=== PATIENT | female | born 1995 | race Caucasian/White ===

== ENCOUNTER 2018-05-08 03:53 | Inpatient (IN) | payer OTHER ==
[2018-05-08 04:25] LABS: APPEARANCE,URINE SLIGHTLY-CLOUDY; BILIRUBIN,URINE NEGATIVE (NEGATIVE); COLOR,URINE YELLOW; GLUCOSE, URINE NEGATIVE (NEGATIVE); KETONES,URINE NEGATIVE (NEGATIVE); LEUKOCYTE ESTERASE,URINE NEGATIVE (NEGATIVE); NITRITE,URINE NEGATIVE (NEGATIVE); PROTEIN,URINE NEGATIVE (NEGATIVE); UROBILINOGEN,URINE NEGATIVE mg/dL (<2.0)
[2018-05-08 04:42] LABS: URINE AMPHETAMINES SCREEN NEGATIVE; URINE BARBITURATES SCREEN NEGATIVE; URINE BENZODIAZEPINES SCREEN NEGATIVE; URINE COCAINE SCREEN NEGATIVE; URINE MARIJUANA (THC) SCREEN NEGATIVE; URINE METHADONE SCREEN NEGATIVE; URINE PHENCYCLIDINE SCREEN NEGATIVE
[2018-05-08] MEDS ORDERED: RINGERS SOLUTION,LACTATED 1,000 ML IV PRN (04:48)
[2018-05-08] MEDS ORDERED: OXYTOCIN 10 UNIT/ML VIAL ONE (05:16)
[2018-05-08] MEDS ORDERED: MISOPROSTOL 0.2 MG TABLET ONE (05:16)
[2018-05-08] MEDS ORDERED: LIDOCAINE 1% INJ-PF (10 MG/ML) 30 ML SDV ONE (05:16)
[2018-05-08] MEDS ORDERED: OXYTOCIN/NORMAL SALINE 20 UNIT/1,000 ML RTUINJ ONE (05:16)
[2018-05-08] MEDS ORDERED: RINGERS SOLUTION,LACTATED 1,000 ML IV ONE (05:30)
[2018-05-08 05:56] LABS: ABSOLUTE BASOPHILS # (AUTO) 0.1 10^3/uL (0.0-0.2); ABSOLUTE EOSINOPHILS # (AUTO) 0.5 10^3/uL (0.0-0.6); ABSOLUTE LYMPHOCYTES (AUTO) 2.4 10^3/uL (0.5-4.7); ABSOLUTE MONOCYTES (AUTO) 0.7 10^3/uL (0.1-1.4); ABSOLUTE NEUT (AUTO) 8.3 10^3/uL (1.7-8.2); BASOPHILS % (AUTO) 0.8 % (0-2); HEMATOCRIT 27.8 % (36.0-47.0); HEMOGLOBIN 9.3 g/dL (12.0-15.5); LYMPHOCYTES % (AUTO) 20.4 % (13-45); MEAN CORPUSCULAR HEMOGLOBIN 25.1 pg (27.0-33.4); MEAN CORPUSCULAR HGB CONC 33.3 g/dL (32.0-36.0); MEAN CORPUSCULAR VOLUME 75 fl (80-97); MONOCYTES % (AUTO) 5.7 % (3-13); PLATELET COUNT 315 10^3/uL (150-450); RED BLOOD COUNT 3.69 10^6/uL (3.72-5.28); RED CELL DISTRIBUTION WIDTH 15.1 % (11.5-14.0); SEGMENTED NEUTROPHILS % (AUTO) 69.1 % (42-78); TOTAL CELLS COUNTED % (AUTO) 100 %; WHITE BLOOD COUNT 11.9 10^3/uL (4.0-10.5)
[2018-05-08] MEDS ORDERED: EPHEDRINE SULFATE INJ 50 MG/1 ML AMPULE ONE (06:34)
[2018-05-08] MEDS ORDERED: BUPIVACAINE HCL 0.25 % INJ/PF (2.5 MG/1 ML) 30 ML VIAL ONE (06:35)
[2018-05-08] MEDS ORDERED: FENTANYL/BUPIVACAINE/NS/PF 0 MCG/0 ML RTUINJ EPI ONE (06:35)
--- NOTE | 2018-05-08 07:08 | Admission Physical ---
Datetime Report Generated by CPN: 05/08/2018 07:08 CURRENT ADMISSION Chief Complaint: Uterine Contractions; Suspected Ruptured Membranes Indication for Induction: Not Applicable Admit Impression : Term, Intrauterine ; Ruptured Membranes Admit Plan: Admit to Unit; Initiate Labor Augmentation Protocol ALLERGIES Medication Allergies: No Medication Allergies: No Known Allergies (05/08/2018) Latex: Unknown Food Allergies: NKA Environmental Allergies: NKA OBSTETRICAL HISTORY EDC: 05/05/2018 00:00 : 1 Para: 0 Term: 0 : 0 SAB: 0 IAB: 0 Ectopic: 0 Livin Cesareans: 0 VBACs: 0 Multiple Births: 0 Gestational Diabetes: No Rh Sensitization: No Incompetent Cervix: No DACIA: No Infertility: No ART Treatment: No Uterine Anomaly: No IUGR: No Hx Previous C/S: No Macrosomia: No Hx Loss/Stillborn: No PIH: No Hx : No Placenta Previa/Abruption: No Depression/PP Depression: No PTL/PROM: No Post Hemorrhage: No Current Procedures: Ultrasound; NST Obstetrical History Comments: G1- current SEE RECORDS Alcohol: No Marijuana : No Cocaine: No Other Illicit Drugs: No Cigarettes: Never Smoker. 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: No Heart Disease: No Hosp/Surgery: No Autoimmune Disorder: No Anesthetic Complications: No Kidney Disease: No Abnormal Pap Smear: No Neuro/Epilepsy: No Psychiatric Disorders: No Other Medical Diseases: No Hepatitis/Liver Disease: No Significant Family History: No Varicosities/Phlebitis: No Trauma/Violence : No Thyroid Dysfunction: No INFECTIOUS HISTORY Gonorrhea: No Genital Herpes: No Chlamydia: Yes Tuberculosis: No Syphilis: No Hepatitis: No HIV/AIDS Exposure: No Rash or Viral Illness: No HPV: No Infectious History Comments: Chlamydia - 2017 PHYSICAL EXAM General: Normal HEENT: Normal Neurologic: Normal Thyroid: Normal Heart: Normal Lungs: Normal Breast: Normal Back: Normal Abdomen: Normal Genitourinary Exam: Normal Extremities: Normal DTRs: Normal Pelvic Type: Adequate Vital Signs: Reviewed VAGINAL EXAM Dilatation: 4 Effacement: 90 Station: -2 MEMBRANES Pooling: Positive Membranes: Ruptured Amniotic Fluid Color: Clear FETUS A EGA: 40.3 Monitoring: External US FHR- Baseline: 120 Variability: Moderate 6-25bpm Accelerations: 15X15 Decelerations: None FHR Category: Category I Estimated Weight (gm): 3800 Presentation: Vertex PLANS FOR LABOR AND DELIVERY Pain Management: Medications; Epidural Feeding Preference: Breast Benefit of Breast Feed Discussed: Yes Circumcision: Yes INFORMED CONSENT Signature: with User ID: [email or web address]
[2018-05-08] MEDS ORDERED: LIDOCAINE 1.5%/EPINEPHRINE INJ-PF 30 ML SDV ONE (07:18)
[2018-05-08] MEDS ORDERED: LIDOCAINE 2% JELLY 5 ML TUBE ONE ×2 (08:34→08:36)
[2018-05-08] MEDS ORDERED: MORPHINE SULFATE 10 MG/ML INJ ONE (09:05)
[2018-05-08] MEDS ORDERED: MORPHINE SULFATE 10 MG/ML INJ IV ONE (09:05)
[2018-05-08] MEDS ORDERED: DIPHENHYDRAMINE HCL 25 MG CAPSULE PO PRN (09:45)
[2018-05-08] MEDS ORDERED: ACETAMINOPHEN WITH CODEINE #3 TABLET PO PRN ×2 (09:45)
[2018-05-08] MEDS ORDERED: OXYTOCIN/NORMAL SALINE 20 UNIT/1,000 ML RTUINJ IV PRN (09:45)
[2018-05-08] MEDS ORDERED: PROMETHAZINE HCL 25 MG SUPP.RECT PR PRN (09:45)
[2018-05-08] MEDS ORDERED: DIPH/PERTUSS(ACELL)/TETANUS VAC/PF 0.5 ML SYR (>=10YO) IM PRN (09:45)
[2018-05-08] MEDS ORDERED: BENZOCAINE/MENTHOL AEROSOL SPRAY 56 ML TOP PRN (09:45)
[2018-05-08] MEDS ORDERED: PROMETHAZINE HCL INJ 25 MG/1 ML VIAL IV PRN (09:45)
[2018-05-08] MEDS ORDERED: NA PHOS,M-B/NA PHOS,DI-BA (ADULT) 133 ML ENEMA PR PRN (09:45)
[2018-05-08] MEDS ORDERED: PSEUDOEPHEDRINE HCL 30 MG TABLET PO PRN (09:45)
[2018-05-08] MEDS ORDERED: PROMETHAZINE HCL 25 MG TABLET PO PRN (09:45)
[2018-05-08] MEDS ORDERED: MAGNESIUM HYDROXIDE SUSP 30 ML UDCUP PO PRN (09:45)
[2018-05-08] MEDS ORDERED: ACETAMINOPHEN 325 MG TABLET PO PRN (09:45)
[2018-05-08] MEDS ORDERED: DIBUCAINE 1% OINTMENT 28 GM TP PRN (09:45)
[2018-05-08] MEDS ORDERED: MEASLES,MUMPS&RUBELLA VACC/PF 0.5 ML VIAL SUBCUT PRN (09:45)
[2018-05-08] MEDS ORDERED: GLYCERIN/WITCH HAZEL LEAF 1 EACH MED..PAD TP PRN (09:45)
--- NOTE | 2018-05-08 10:48 | Delivery Summary ---
Del Sum A-C Datetime Report Generated by CPN: 05/08/2018 10:48 DELIVERY PERSONNEL DELIVERY PERSONNEL: [id number] Delivery Doctor:: Sandhya Barrios CNM Nurse Ship Joiner Certified:: Sandhya Barrios CNM Labor and Delivery Nurse:: Luke Fonseca RNrobotic machine tender production Nurse:: LIZET Stacy Header Setup Operator/FIELD MECHANICAL METER TESTER: ST Yadira Header Setup Operator/FIELD MECHANICAL METER TESTER: Doris Prieto, OPERATOR MAINTAINER Additional Personnel: : Karime Miller RN MATERNAL INFORMATION Delivery Anesthesia: Local Medications During Delivery: lidocaine jelly for local anesthetic and 1% lidocaine for vaginal repair Medications After Delivery: Pitocin Bolus-Please Comment Meds After Delivery Comment: Pitocin 20 units in 1000ml nss open for bolus Maternal Complications: None Provider Comments: Arrived in unit and assumed care of this patient as she was pushing in room with RN. Pt. needed much guidance but pushed well and quickly delivered a viable baby boy in ZOFIA position with terminal meconium. Baby with strong respiratory effort and cry with tactile stimulation, placed on maternal abdomen and cord allowed to pulsating then clampsed x2 and cut by FOB (short cord, 3vc noted). Placenta quickly delivered spontaneously intact with moderate calcification, marginal cord insertion. Fundus firm, minimal bleeding. Vaginal and perineal inspection revealed laceration as stated and repaired in the usual manner. Bilateral labial abrasion noted and hemostatic. Mother and baby skin to skin, stable and bonding at this time. LABOR SUMMARY EDC: 05/05/2018 00:00 No. Babies in Womb: 1 Attempted: No Labor Anesthesia: None LABOR INFORMATION Reason for Induction: Not Applicable Onset of Labor: 05/08/2018 02:30 Complete Dilatation: 05/08/2018 07:38 Oxytocin: N/A Group B Beta Strep: Negative Antibiotics # of Doses: 0 Steroids Given: None Reason Steroids Not Administered: Not Applicable MEMBRANES Membranes Rupture Method: Spontaneous Rupture of Membranes: 05/08/2018 03:00 Length of Rupture (hr): 5.80 Amniotic Fluid Color: Clear Amniotic Fluid Amount: Moderate Amniotic Fluid Odor: None STAGES OF LABOR Stage 1 hr: 5 Stage 1 min: 8 Stage 2 hr: 1 Stage 2 min: 10 Stage 3 hr: 0 Stage 3 min: 6 Total Time in Labor hr: 6 Total Time in Labor min: 24 VAGINAL DELIVERY Episiotomy: None Laceration #1: Vaginal Laceration Extension #1: First Degree Other Laceration: 2.0 chromic Laceration Repair: Yes Laceration Repair Note: midline vaginal laceration repaired with 2-[address], hemostatis achieved Sponge Count Correct: Yes Sharps Count Correct: Yes CSECTION DELIVERY Primary Indication: N/A Secondary Indication: N/A CSection Incidence: N/A Labor: N/A Elective: N/A CSection Incision: N/A BABY A INFORMATION Infant Delivery Date/Time: 05/08/2018 08:48 Method of Delivery: Vaginal Born in Route : No : N/A Forceps: N/A Vacuum Extraction: N/A Shoulder Dystocia : No PRESENTATION/POSITION BABY A Presentation: Cephalic Cephalic Presentation: Vertex Vertex Position: Right Occipital Anterior Breech Presentation: N/A PLACENTA INFORMATION BABY A Placenta Delivery Time : 05/08/2018 08:54 Placenta Method of Delivery: Spontaneous Placenta Status: Delivered SCORES BABY A Heart Rate 1 min: >100 bpm Resp Effort 1 min: Good Cry Reflex Irritability 1 min: Cough or Sneeze or Pulls Away Muscle Tone 1 min: Active Motion Color 1 min: Body Ronald, Extremities Blue Resuscitation Effort 1 min: Tactile Stimulation SCORE 1 MIN: 9 Heart Rate 5 min: >100 bpm Resp Effort 5 min: Good Cry Reflex Irritability 5 min: Cough or Sneeze or Pulls Away Muscle Tone 5 min: Active Motion Color 5 min: Body Ronald, Extremities Blue Resuscitation Effort 5 min: N/A SCORE 5 MIN: 9 Resuscitation Effort 10 min: N/A INFANT INFORMATION BABY A Gestational Age at Delivery: 40.3 Gestational Status: Full Term- 39- 40.6 Weeks Infant Outcome : Liveborn Infant Condition : Stable Infant Sex: Male IDENTIFICATION BABY A Infant Verification Date/Time: 05/08/2018 09:06 ID Band Number: [id number] Mother's Name Verified: Yes RN Verifying Infant: S Camp [facility] Additional Verifying Personnel: Abril Fonseca RN WEIGHT/LENGTH BABY A Infant Birthweight (gm): 3065 Weight (lb): 6 Infant Weight (oz): 12 Length (in): 18.75 Length (cm): 47.63 CORD INFORMATION BABY A No. Cord Vessels: 3 Nuchal Cord : N/A Cord Blood Taken: Yes-For Eval (Mom's Blood Type - or O+) Infant Suction: Mouth ASSESSMENT BABY A Complications: Multiple Variable Decels; Meconium Infant Complications- Other: terminal meconium Physical Findings at Delivery: Caput Succedaneum Respirations: Appears Normal Skin to Skin: Yes Skin to Skin Time (min): 80 Hall Clerk/ALS Called : No Infant Care By: Abril Fonseca RN Transferred To: Remains with Mother BABY B INFORMATION : N/A SIGNATURES Assignment: Rina De Paz MD Signature: with User ID: [email or web address] : with User ID: [email or web address]
[2018-05-08] MEDS: IBUPROFEN 800 MG TABLET PO SCH ×3 (14:31→22:03)
[2018-05-08] MEDS: FERROUS SULFATE 325 MG TABLET PO SCH ×2 (16:03→17:50)
[2018-05-08] MEDS: DOCUSATE SODIUM 100 MG CAPSULE PO SCH ×2 (16:03→17:50)
[2018-05-08] MEDS: FAMOTIDINE 20 MG TABLET PO SCH ×2 (16:04→22:03)
[2018-05-08] MEDS: PRENATAL VITAMIN W DHA CAPSULE PO SCH (16:04)
[2018-05-08] MEDS: SENNOSIDES/DOCUSATE 8.6-50 MG 1 EACH TABLET PO SCH (16:04)
[2018-05-09] MEDS: IBUPROFEN 800 MG TABLET PO SCH ×3 (05:12→21:36)
[2018-05-09 07:55] LABS: HEMATOCRIT 24.2 % (36.0-47.0); MEAN CORPUSCULAR HEMOGLOBIN 24.9 pg (27.0-33.4); MEAN CORPUSCULAR HGB CONC 32.8 g/dL (32.0-36.0); MEAN CORPUSCULAR VOLUME 76 fl (80-97); PLATELET COUNT 249 10^3/uL (150-450); RED BLOOD COUNT 3.19 10^6/uL (3.72-5.28); RED CELL DISTRIBUTION WIDTH 15.4 % (11.5-14.0); WHITE BLOOD COUNT 10.7 10^3/uL (4.0-10.5)
[2018-05-09 08:24] LABS: HEMOGLOBIN 7.9 g/dL (12.0-15.5)
[2018-05-09] MEDS: FAMOTIDINE 20 MG TABLET PO SCH ×2 (09:25→21:36)
[2018-05-09] MEDS: DOCUSATE SODIUM 100 MG CAPSULE PO SCH ×2 (09:25→17:56)
[2018-05-09] MEDS: FERROUS SULFATE 325 MG TABLET PO SCH ×2 (09:25→17:56)
[2018-05-09] MEDS: PRENATAL VITAMIN W DHA CAPSULE PO SCH (09:25)
[2018-05-09] MEDS: SENNOSIDES/DOCUSATE 8.6-50 MG 1 EACH TABLET PO SCH (09:25)
--- NOTE | 2018-05-09 09:40 | PDOC PROGRESS REPORT ---
Subjective-OB Progress Note for:: 05/09/18 - PP Day #1, pt doing well, no complaints of being dizzy, CP, tachycardia. Hbg 7.9 pt is . O+, Rubella immune Physical Exam (OB) Vital Signs: Temp Pulse Resp BP Pulse Ox 98.2 F 84 15 135/70 H 100 05/09/18 07:26 05/09/18 07:26 05/09/18 07:26 05/09/18 07:26 05/09/18 07:26 Intake & Output 05/08/18 05/09/18 05/10/18 06:59 06:59 06:59 Intake Total 200 Balance 200 Weight 65.7 kg - General General Appearance: Appears well, Alert In distress: None - PIH/Pre-Eclampsia DTR's: 2 + Clonus: Negative Headache: Absent Epigastric Pain: No Visual Changes: No - Lochia Lochia Amount: Scant < 10 ml Lochia Color: Rubra/Red - Abdomen Description: Tender, Soft Hernia Present: No Fundal Description: Firm, Midline Fundal Height: u/u - u/2 - Respiratory Respiratory Status: No respiratory distress - Abdominal Distension: No distension - Genitourinary Genitourinary Note: voiding - Extremities Upper extremity: Normal inspection Lower extremities: Normal inspection - Neurological Cognition: Normal Orientation: AAOx4 - Psychological Associated symptoms: Normal affect - Skin Skin Temperature: Warm Skin Moisture: Dry Objective-Diagnostic Laboratory: 05/09/18 07:36 05/09/18 07:36 WBC 10.7 H RBC 3.19 L Hgb 7.9 L Hct 24.2 L MCV 76 L MCH 24.9 L MCHC 32.8 RDW 15.4 H Plt Count 249 Assessment and Plan(PN) - Assessment and Plan (1) Anemia, Is this a current diagnosis for this admission?: Yes (2) Delivery normal Is this a current diagnosis for this admission?: Yes (3) Qualifiers: Weeks of gestation: 40 weeks Qualified Code(s): Z3A.40 - 40 weeks gestation of Is this a current diagnosis for this admission?: Yes - Time Spent with Patient Time with patient: Less than 15 minutes Medications reviewed and adjusted accordingly: Yes - Disposition Anticipated Discharge: Home Within: within 24 hours
[2018-05-10] MEDS: IBUPROFEN 800 MG TABLET PO SCH (05:09)
[2018-05-10 08:25] VITALS: BP 114/61
[2018-05-10] MEDS: FAMOTIDINE 20 MG TABLET PO SCH (09:40)
[2018-05-10] MEDS: SENNOSIDES/DOCUSATE 8.6-50 MG 1 EACH TABLET PO SCH (09:40)
[2018-05-10] MEDS: PRENATAL VITAMIN W DHA CAPSULE PO SCH (09:40)
[2018-05-10] MEDS: FERROUS SULFATE 325 MG TABLET PO SCH (09:40)
[2018-05-10] MEDS: DOCUSATE SODIUM 100 MG CAPSULE PO SCH (09:40)
--- NOTE | 2018-05-10 10:56 | PDOC DISCHARGE SUMMARY ---
Final Diagnosis Discharge Date: 05/10/18 - Final Diagnosis (1) Anemia, Is this a current diagnosis for this admission?: Yes (2) Delivery normal Is this a current diagnosis for this admission?: Yes (3) Laceration, obstetrical, first degree Is this a current diagnosis for this admission?: Yes Discharge Data - Discharge Medication Prescriptions: Ibuprofen [Motrin 800 mg Tablet] 800 mg PO Q8HP PRN #60 tablet PRN Reason: Home Medications: Ferrous Sulfate [Feosol 325 mg Tablet] 325 mg PO BID tablet 05/10/18 Ibuprofen [Motrin 800 mg Tablet] 800 mg PO Q8HP PRN #60 tablet 05/10/18 Vit/Dha [ Multi + Dha Capsule] 1 cap PO DAILY capsule 05/10/18 Procedures: NST Intrapartum Procedure(s): Spontaneous Vaginal Delivery Laceration-Degree: 1st - Diagnosis Test Laboratory: Temp Pulse Resp BP Pulse Ox 98.4 F 71 18 114/61 97 05/10/18 10:42 05/10/18 10:42 05/10/18 10:42 05/10/18 10:42 05/10/18 10:42 05/08/18 05/08/18 05/09/18 04:05 05:15 07:36 RBC 3.69 L 3.19 L Hgb 9.3 L 7.9 L Hct 27.8 L 24.2 L Urine Opiates Screen NEGATIVE - Discharge information/Instructions Discharge Activity: Balance Activity w/Rest, Pelvic Rest Discharge Diet: Regular Disposition: HOME, SELF-CARE Follow up with: [facility] in: 4, Weeks
== END 2018-05-10 12:59 | disposition home or self-care (01) | DRG 807 ==
LOC: LC 03:53 → LR 04:32 → 2S 11:21
PROVIDERS: ADMIT Obstetrics & Gynecology; ATTEND Obstetrics & Gynecology
PROC: 10E0XZZ Delivery of Products of Conception, External Approach (ICD-10-PCS; principal; 2018-05-08)
PROC: 0HQ9XZZ Repair Perineum Skin, External Approach (ICD-10-PCS; 2018-05-08)
DX: O77.0 Labor and delivery complicated by meconium in amniotic fluid (principal); Z37.0 Single live birth; O69.3XX0 Labor and delivery complicated by short cord, not applicable or unspecified; O76 Abnormality in fetal heart rate and rhythm complicating labor and delivery; O70.0 First degree perineal laceration during delivery; O90.81 Anemia of the puerperium; D64.9 Anemia, unspecified; Z3A.40 40 weeks gestation of pregnancy
CPT/HCPCS: 36415; 80307; 81005; 84112; 85025; 85027; 86592; 86850; 86900; 86901; J2270; J2590; J3010; J3490